=== PATIENT | male | born 1990 | race Caucasian/White ===

== ENCOUNTER 2021-01-20 20:42 | Emergency (ER) | payer OTHER ==
[~2021-01-20] VITALS: Ht 167.6 cm; Wt 86.2 kg
== END 2021-01-20 21:53 | disposition home or self-care (01) ==
LOC: ER 20:42
DX: S61.221A Laceration with foreign body of left index finger without damage to nail, initial encounter (principal); W26.0XXA Contact with knife, initial encounter; Y93.89 Activity, other specified; Y92.098 Other place in other non-institutional residence as the place of occurrence of the external cause; Y99.8 Other external cause status